=== PATIENT | female | born 1965 | race Caucasian/White ===

== ENCOUNTER 2018-12-13 04:35 | Observation (INO) ==
[2018-12-13] MEDS ORDERED: Ipratropium/Albuterol Neb 3 ML IH ONE (04:49)
[2018-12-13 05:13] LABS: ABG Base Excess 4 mEq/L (-2 to 3); ABG HCO3 31 mEq/L (21-27); ABG Oxygen Saturation 97 % (95-98); ABG PCO2 55 mmHg (35-45); ABG PH 7.36 pH Units (7.32-7.45); ABG PO2 93 mmHg (85-104); ABG TCO2 33 mEq/L (20-26)
--- NOTE | 2018-12-13 05:38 | Emergency Department Note ---
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 [Primary Care Provider] - Forms: ED Satisfaction Letter Time of Disposition: 06:45 SOB HPI - General Chief Complaint: ED Shortness of Breath/Dyspnea Stated Complaint: Wheezing, low SAO2, confusion Time Seen by Provider: 12/13/18 04:40 Source: patient, EMS Mode of arrival: EMS Limitations: no limitations Nursing Notes Reviewed: Yes Vital Signs Reviewed: Yes - History of Present Illness 53-year-old female who presents to the emergency room who had been reported as having an altered mental status at home who presents here to the emergency room having recently had a new change in medications but also was not wearing her BiPAP. She apparently was found with sats of 80% by EMS on the scene and she was confused and talking out of her head is its been reported. Upon arrival here the patient appears to be answering questions appropriately she knows person place date and time she denies though chest pain chest pressure palp itations she denies any cough hemoptysis or sputum production she denies any blurred vision double vision she admits that she did not have her BiPAP on she says to able to tell me that she just recently started new medication about a week ago. She denies any complaints she denies any fever chills cough congestion. Respiratory type symptoms she denies neck pain or neck stiffness but does admit to headache it is not the worst headache of her life it was not a sudden onset or thunderclap presentation from what obtained from the patient though at this time. 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 Denies: chest pain, pain with inspiration, fever, cough, sputum production, orthopnea, lower extremity pain, polyuria, polydipsia, parasthesias, palpitations, hemoptysis, diaphoresis, nausea/vomiting, syncope, abdominal pain, rash, sense of impending doom Treatment prior to arrival: oxygen Cough present: No Sputum production: No - Related Data Home Medications Medication Instructions Recorded Confirmed Aspirin Enteric Coated [Aspirin EC] 81 mg PO DAILY 09/01/16 04/15/18 Azelastine 0.1% Nasal [place] 1 spray NS BID 09/01/16 04/15/18 [Astelin] Cholecalciferol (Vitamin D3) 10,000 unit PO QWEEK 09/01/16 04/15/18 [Vitamin D3] Docusate [Colace] 100 mg PO DAILY PRN 09/01/16 04/15/18 Furosemide [Lasix] 20 mg PO DAILY 09/01/16 04/15/18 Melatonin 6 mg PO HS PRN 09/01/16 04/15/18 Metoprolol [Lopressor] 25 mg PO BID 09/01/16 04/15/18 Montelukast [Singulair] 10 mg PO QPM 09/01/16 04/15/18 Omeprazole [PriLOSEC] 40 mg PO DAILY 09/01/16 04/15/18 Tiotropium [Spiriva] 2 puff IH DAILY 09/01/16 04/15/18 BuPROPion XL (24 HR) [Wellbutrin 150 mg PO DAILY 06/29/17 04/15/18 Xl] Loratadine [Claritin] 10 mg PO DAILY 06/29/17 04/15/18 Dextran 70/Hypromellose 1 drop OP BID 01/20/18 04/15/18 [Artificial Tears] Famotidine [Pepcid] 40 mg PO DAILY 01/20/18 04/15/18 Fluticasone/Vilanterol [Breo 1 puff IH DAILY 01/20/18 04/15/18 Ellipta 100-25 Mcg INH] Guaifenesin [Mucinex] 600 mg PO Q12H PRN 01/20/18 04/15/18 Ibuprofen [Motrin] 600 mg PO TIDWM PRN 01/20/18 04/15/18 Ipratropium/Albuterol Neb [Duoneb] 3 ml IH Q6HR 01/20/18 04/15/18 Polyethylene Glycol 3350 [MiraLAX] 17 gm PO DAILY 01/20/18 04/15/18 Trazodone HCl 100 - 200 mg PO HS PRN 01/20/18 04/15/18 hydrOXYzine HCl [Hydroxyzine HCl] 25 mg PO TID PRN 01/20/18 04/15/18 lamoTRIgine [Lamictal] 100 mg PO DAILY 01/20/18 04/15/18 Acetaminophen [Non-Aspirin] 650 mg PO Q4H PRN 04/15/18 04/15/18 Albuterol Sulfate [Ventolin Hfa] 2 puff IN Q4H PRN 04/15/18 04/15/18 Amitriptyline [Elavil] 50 mg PO DAILY 04/15/18 04/15/18 Atorvastatin [Lipitor] 40 mg PO DAILY 04/15/18 04/15/18 Docosanol [Abreva] 1 appl TP BID 04/15/18 04/15/18 Lurasidone HCl [Latuda] 60 mg PO DAILY 04/15/18 04/15/18 Multivit with Calcium,Iron,Min 1 tab PO DAILY 04/15/18 04/15/18 [One Daily Women's] Nitroglycerin 0.4 mg PO AD 04/15/18 04/15/18 Previous Rx's Medication Instructions Recorded Ketoconazole 2% CRM [Nizoral Cream] 1 appl TP BID #1 tube 03/30/18 Promethazine [Phenergan] 12.5 mg PO Q8HR #15 tablet 03/30/18 PredniSONE [Deltasone] See Taper PO DAILY #20 tablet 04/20/18 Allergies Allergy/AdvReac Type Severity Reaction Status Date / Time oxytetracycline Allergy Swelling Verified 12/13/18 04:59 [From Terramycin] of Lip/Tongue/Throat All systems ED: reviewed and negative except as stated. Review of Systems: As Per HPI Constitutional: Denies: fever, chills, weakness Eyes: Denies: eye pain, eye discharge ENT ED: Denies: ear pain, throat pain Cardiovascular: Denies: chest pain, palpitations Respiratory: Denies: cough, dyspnea, wheezes Gastrointestinal: Denies: abdominal pain, nausea, vomiting Genitourinary: Denies: urgency, dysuria, frequency Musculoskeletal: Denies: back pain, neck pain Integumentary: Denies: rash, abrasion Neurological: Reports: headache, confusion. Denies: weakness Psychiatric: Denies: anxiety, depression Endocrine: Denies: fatigue Hematological/Lymphatic: Denies: easy bleeding Allergic/Immunologic: Denies: facial swelling Past Medical History - Past Medical History Attestation: Yes The following information was validated with the patient. 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 - Social History Smoking Status: Current every day smoker Smokeless Tobacco Status: No Alcohol use: Reports: none Drug use: Reports: none Physical Exam - General Limitations: no limitations General appearance: alert, in no apparent distress, obese - Head Head exam: atraumatic, normocephalic, normal inspection - Eye Eye exam: Present: normal appearance, PERRL, EOMI - ENT ENT exam: normal exam, normal oropharynx, mucous membranes moist, TM's normal bilaterally, normal external ear exam - Neck Neck exam: Present: normal inspection, full ROM, trachea midline - Chest Chest inspection: Present: normal inspection, symmetric chest wall rise - Respiratory Respiratory exam: Present: normal lung sounds bilaterally - Cardiovascular Cardiovascular exam: Present: regular rate, normal rhythm, normal heart sounds - Abdominal Exam Abdominal exam: Present: soft, Non-Tender, normal bowel sounds. Absent: mass, pulsatile mass - Expanded Upper Extremity Exam Shoulder exam: Present: normal inspection, full ROM Arm exam: Present: normal inspection, full ROM Elbow exam: Present: normal inspection, full ROM Forearm/Wrist exam: Present: normal inspection, full ROM Hand exam: Present: normal inspection, full ROM Vascular exam: Normal: capillary refill, radial pulse - Expanded Lower Extremity Exam Hip/Pelvis exam: Present: normal inspection, full ROM Upper leg exam: Present: normal inspection, full ROM Knee exam: Present: normal inspection, full ROM Lower leg exam: Present: normal inspection, full ROM Ankle exam: Present: normal inspection, full ROM Foot/toe exam: Present: normal inspection, full ROM Neurovascular/Tendon exam: Present: normal capillary refill, normal fine/light touch. Absent: motor deficit, sensory deficit, tendon deficit Gait: observed and normal - Back Exam Back exam: Present: normal inspection, full ROM. Absent: muscle spasm - Neurological Exam Neurological exam: Present: alert, oriented X3, CN II-XII intact, other (At times that appeared to be confused and was using a spoon and turning upside down trying to feed herself eyes and to could not comprehend what nursing staff was saying to) - Psychiatric Psychiatric exam: Present: agitated (As a result she appeared times to be agitated from the confusion) - Skin Skin exam: Present: warm, dry, intact, normal color Course Course Narrative: Patient seen and evaluated examinations performed laboratory chest x-ray ABG were obtained I reviewed the EKG does not show any evidence of an acute NC appears that this may be a combination of whether it is medication or its related to hypoxia results are pending at this time With the results have not been result of the chest x-ray showing no evidence of pneumonia or infiltrative processes appears to be an exacerbation of COPD which is causing the hypoxia and with her failure to where her BiPAP at night as result patient be admitted for observation spoke with Dr. Mtz Vital Signs Temperature 97.4 F L 12/13/18 04:38 Pulse Rate 83 12/13/18 04:38 Respiratory Rate 18 12/13/18 04:38 Blood Pressure 121/93 12/13/18 04:38 O2 Sat by Pulse Oximetry 99 12/13/18 04:38 Temperature 97.4 F L 12/13/18 04:38 Pulse Rate 72 12/13/18 05:45 Respiratory Rate 14 12/13/18 05:45 Blood Pressure 117/70 12/13/18 05:45 O2 Sat by Pulse Oximetry 94 12/13/18 05:45 Oxygen Delivery Oxygen Delivery Room Air Procedures - ABG Interpretation ABG Interpretation 1 Additional Comments: Patient appears to be compensating for CO2 slightly elevated that she is little bit hypoxic mixed respiratory compensated Shortness of Breath/Dyspnea - MDM Narrative Medical decision making narrative: CO2 retention causing a CO2 narcosis - Differential Diagnosis Likely: acute exacerbation of chronic obstructive airways disease - Medical Records Medical records reviewed: Yes I reviewed the patient's medical records. - Lab Data Lab results reviewed: Yes I reviewed the patient's lab results. Result diagrams: 12/13/18 05:38 12/13/18 05:38 Lab Results 12/13/18 12/13/18 12/13/18 Range/Units 05:11 05:30 05:30 WBC (4.3-11.1) K/mcL RBC (3.82-4.97) M/mcL Hgb (11.5-15.4) g/dL Hct (35.3-44.9) % MCV (83.0-100.0) fL MCH (28.0-33.3) pg MCHC (31.6-35.5) g/dL RDW (11.5-14.5) % Plt Count (140-400) K/mcL MPV (9.4-12.4) fL Immature Gran % (0-4) % Seg Neutrophils % % Lymphocytes % % Monocytes % % Eosinophils % % Basophils % % Neutrophils # (1.6-8.9) K/mcL Lymphocytes # (0.6-4.6) K/mcL Monocytes # (0.0-1.3) K/mcL Eosinophils # (0.0-0.6) K/mcL Basophils # (0.0-0.2) K/mcL PT (9.4-12.1) Seconds INR APTT (26.0-36.0) Seconds Sample Site R Radial ABG pH 7.36 (7.32-7.45) pH Units ABG pCO2 55 H (35-45) mmHg ABG pO2 93 (85-104) mmHg ABG HCO3 31 H (21-27) mEq/L ABG Total CO2 33 H (20-26) mEq/L ABG O2 Saturation 97 (95-98) % ABG Base Excess 4 H (-2 to 3) mEq/L Cong Test Positive O2 Delivery Device Cannula Inspired O2 2.0 (1-15=lpm [id number]=%) Sodium (136-145) mEq/L Potassium (3.5-5.1) mEq/L Chloride (98-107) mEq/L Carbon Dioxide (23-29) mEq/L BUN (6-20) mg/dL Creatinine (0.60-1.20) mg/dL Est GFR ( Amer) (> 60) Est GFR (Non-Af Amer) (> 60) BUN/Creatinine Ratio (6-26) Glucose (70-105) mg/dL Calculated Osmolality (280-300) Calcium (8.6-10.3) mg/dL Total Bilirubin (0.3-1.0) mg/dL AST (13-39) Units/L ALT (7-52) Units/L Alkaline Phosphatase (34-104) Units/L Troponin I (< 0.04) ng/mL Serum Total Protein (6.4-8.9) g/dL Albumin (3.5-5.7) g/dL Globulin (2.4-3.5) g/dL Albumin/Globulin Ratio (1.1-2.2) TSH (0.340-5.600) mcIU/mL Urine Color Yellow (Yellow) Urine Clarity Slightly Cloudy A (Clear) Urine pH 6.0 (5.0-8.0) pH Units Ur Specific [place] 1.015 (1.010-1.025) Urine Protein Negative (Neg-Trace) mg/dL Urine Glucose (UA) Normal (Normal) mg/dL Urine Ketones Negative (Negative) mg/dL Urine Blood Negative (Negative) Urine Nitrite Negative (Negative) Urine Bilirubin Negative (Negative) Urine Urobilinogen Normal (Normal) mg/dL Ur Leukocyte Esterase Negative (Negative) Urine Microscopic RBC 0-3 (0-3) per hpf Urine Microscopic WBC 0-3 (0-3) per hpf Ur Squamous Epith Cells Few (None-Few) per lpf Urine Bacteria Moderate H (None-Few) per hpf Hyaline Casts Few (None-Few) per lpf Urine Mucus Few (Few) Ur Culture Indicated? YES A (NO) Urine Opiates Screen Positive H (Sqczcu=593) ng/mL Ur Buprenorphine Scrn Negative (Cutoff=5) ng/mL Ur Oxycodone Screen Negative (Cutoff= 100) ng/mL Ur Barbiturates Screen Negative (Moeznc=549) ng/mL Ur Phencyclidine Scrn Negative (Cutoff=25) ng/mL Ur Amphetamines Screen Negative (Hjfhkn=9043) ng/mL U Benzodiazepines Scrn Negative (Ipmyqc=171) ng/mL Urine Cocaine Screen Negative (Cutoff= 300) ng/mL U Marijuana (THC) Screen Negative (Cutoff = 50) ng/mL Ur Drug Screen Interp See Below 12/13/18 12/13/18 12/13/18 Range/Units 05:38 05:38 05:38 WBC 7.9 (4.3-11.1) K/mcL RBC 4.44 (3.82-4.97) M/mcL Hgb 13.1 (11.5-15.4) g/dL Hct 39.8 (35.3-44.9) % MCV 89.6 (83.0-100.0) fL MCH 29.5 (28.0-33.3) pg MCHC 32.9 (31.6-35.5) g/dL RDW 13.9 (11.5-14.5) % Plt Count 324 (140-400) K/mcL MPV 9.7 (9.4-12.4) fL Immature Gran % 0.3 (0-4) % Seg Neutrophils % 59.2 % Lymphocytes % 27.8 % Monocytes % 11.0 % Eosinophils % 1.3 % Basophils % 0.4 % Neutrophils # 4.7 (1.6-8.9) K/mcL Lymphocytes # 2.2 (0.6-4.6) K/mcL Monocytes # 0.9 (0.0-1.3) K/mcL Eosinophils # 0.1 (0.0-0.6) K/mcL Basophils # 0.0 (0.0-0.2) K/mcL PT (9.4-12.1) Seconds INR APTT 44.7 H (26.0-36.0) Seconds Sample Site ABG pH (7.32-7.45) pH Units ABG pCO2 (35-45) mmHg ABG pO2 (85-104) mmHg ABG HCO3 (21-27) mEq/L ABG Total CO2 (20-26) mEq/L ABG O2 Saturation (95-98) % ABG Base Excess (-2 to 3) mEq/L Cong Test O2 Delivery Device Inspired O2 (1-15=lpm [id number]=%) Sodium 141 (136-145) mEq/L Potassium 3.3 L (3.5-5.1) mEq/L Chloride 100 (98-107) mEq/L Carbon Dioxide 34 H (23-29) mEq/L BUN 9 (6-20) mg/dL Creatinine 0.86 (0.60-1.20) mg/dL Est GFR ( Amer) > 60 (> 60) Est GFR (Non-Af Amer) > 60 (> 60) BUN/Creatinine Ratio 10 (6-26) Glucose 111 H (70-105) mg/dL Calculated Osmolality 291 (280-300) Calcium 9.0 (8.6-10.3) mg/dL Total Bilirubin 0.3 (0.3-1.0) mg/dL AST 14 (13-39) Units/L ALT 16 (7-52) Units/L Alkaline Phosphatase 123 H (34-104) Units/L Troponin I (< 0.04) ng/mL Serum Total Protein 6.4 (6.4-8.9) g/dL Albumin 3.9 (3.5-5.7) g/dL Globulin 2.5 (2.4-3.5) g/dL Albumin/Globulin Ratio 1.6 (1.1-2.2) TSH (0.340-5.600) mcIU/mL Urine Color (Yellow) Urine Clarity (Clear) Urine pH (5.0-8.0) pH Units Ur Specific [place] (1.010-1.025) Urine Protein (Neg-Trace) mg/dL Urine Glucose (UA) (Normal) mg/dL Urine Ketones (Negative) mg/dL Urine Blood (Negative) Urine Nitrite (Negative) Urine Bilirubin (Negative) Urine Urobilinogen (Normal) mg/dL Ur Leukocyte Esterase (Negative) Urine Microscopic RBC (0-3) per hpf Urine Microscopic WBC (0-3) per hpf Ur Squamous Epith Cells (None-Few) per lpf Urine Bacteria (None-Few) per hpf Hyaline Casts (None-Few) per lpf Urine Mucus (Few) Ur Culture Indicated? (NO) Urine Opiates Screen (Rryokt=569) ng/mL Ur Buprenorphine Scrn (Cutoff=5) ng/mL Ur Oxycodone Screen (Cutoff= 100) ng/mL Ur Barbiturates Screen (Bccrvj=878) ng/mL Ur Phencyclidine Scrn (Cutoff=25) ng/mL Ur Amphetamines Screen (Fiqhsd=9896) ng/mL U Benzodiazepines Scrn (Cskqaa=071) ng/mL Urine Cocaine Screen (Cutoff= 300) ng/mL U Marijuana (THC) Screen (Cutoff = 50) ng/mL Ur Drug Screen Interp 12/13/18 12/13/18 Range/Units 05:38 05:38 WBC (4.3-11.1) K/mcL RBC (3.82-4.97) M/mcL Hgb (11.5-15.4) g/dL Hct (35.3-44.9) % MCV (83.0-100.0) fL MCH (28.0-33.3) pg MCHC (31.6-35.5) g/dL RDW (11.5-14.5) % Plt Count (140-400) K/mcL MPV (9.4-12.4) fL Immature Gran % (0-4) % Seg Neutrophils % % Lymphocytes % % Monocytes % % Eosinophils % % Basophils % % Neutrophils # (1.6-8.9) K/mcL Lymphocytes # (0.6-4.6) K/mcL Monocytes # (0.0-1.3) K/mcL Eosinophils # (0.0-0.6) K/mcL Basophils # (0.0-0.2) K/mcL PT 11.6 (9.4-12.1) Seconds INR 1.0 APTT (26.0-36.0) Seconds Sample Site ABG pH (7.32-7.45) pH Units ABG pCO2 (35-45) mmHg ABG pO2 (85-104) mmHg ABG HCO3 (21-27) mEq/L ABG Total CO2 (20-26) mEq/L ABG O2 Saturation (95-98) % ABG Base Excess (-2 to 3) mEq/L Cong Test O2 Delivery Device Inspired O2 (1-15=lpm [id number]=%) Sodium (136-145) mEq/L Potassium (3.5-5.1) mEq/L Chloride (98-107) mEq/L Carbon Dioxide (23-29) mEq/L BUN (6-20) mg/dL Creatinine (0.60-1.20) mg/dL Est GFR ( Amer) (> 60) Est GFR (Non-Af Amer) (> 60) BUN/Creatinine Ratio (6-26) Glucose (70-105) mg/dL Calculated Osmolality (280-300) Calcium (8.6-10.3) mg/dL Total Bilirubin (0.3-1.0) mg/dL AST (13-39) Units/L ALT (7-52) Units/L Alkaline Phosphatase (34-104) Units/L Troponin I < 0.03 (< 0.04) ng/mL Serum Total Protein (6.4-8.9) g/dL Albumin (3.5-5.7) g/dL Globulin (2.4-3.5) g/dL Albumin/Globulin Ratio (1.1-2.2) TSH 2.855 (0.340-5.600) mcIU/mL Urine Color (Yellow) Urine Clarity (Clear) Urine pH (5.0-8.0) pH Units Ur Specific [place] (1.010-1.025) Urine Protein (Neg-Trace) mg/dL Urine Glucose (UA) (Normal) mg/dL Urine Ketones (Negative) mg/dL Urine Blood (Negative) Urine Nitrite (Negative) Urine Bilirubin (Negative) Urine Urobilinogen (Normal) mg/dL Ur Leukocyte Esterase (Negative) Urine Microscopic RBC (0-3) per hpf Urine Microscopic WBC (0-3) per hpf Ur Squamous Epith Cells (None-Few) per lpf Urine Bacteria (None-Few) per hpf Hyaline Casts (None-Few) per lpf Urine Mucus (Few) Ur Culture Indicated? (NO) Urine Opiates Screen (Rcrqdr=833) ng/mL Ur Buprenorphine Scrn (Cutoff=5) ng/mL Ur Oxycodone Screen (Cutoff= 100) ng/mL Ur Barbiturates Screen (Sdrdpk=112) ng/mL Ur Phencyclidine Scrn (Cutoff=25) ng/mL Ur Amphetamines Screen (Fumgmi=0165) ng/mL U Benzodiazepines Scrn (Kgknsg=828) ng/mL Urine Cocaine Screen (Cutoff= 300) ng/mL U Marijuana (THC) Screen (Cutoff = 50) ng/mL Ur Drug Screen Interp - Radiology Data Radiology results reviewed: Yes I reviewed the patient's radiology results. ITS Impressions Chest X-Ray 12/13/18 04:48 IMPRESSION: Negative chest. D/ / Sangeeta Rg MD / Sangeeta Rg MD Interpreting Provider: Sangeeta Rg MD Head CT 12/13/18 04:50 IMPRESSION: No acute intracranial abnormality. Left maxillary likely chronic sinusitis as described. D/ / Sangeeta Rg MD / Sangeeta Rg MD Interpreting Provider: Sangeeta Rg MD - EKG Data EKG attestation: Yes I reviewed and interpreted this EKG. EKG results narrative: EKG shows sinus rhythm rate of 80 AR 206 QRS 103 QT 421 axis LX Critical Care Time Critical Care Time: Yes Total Critical Care Time: 15 Attestation: High probability of clinically significant life-threatening deterioration patient condition excluding separately reportable procedures as result for determining etiology for causing altered mental status discussion with hospitalist for admission
[2018-12-13 06:13] LABS: Basophils % 0.4 %; Eosinophils # 0.1 K/mcL (0.0-0.6); Eosinophils % 1.3 %; Hematocrit 39.8 % (35.3-44.9); Hemoglobin 13.1 g/dL (11.5-15.4); Immature Granulocytes % 0.3 % (0-4); Lymphocytes # 2.2 K/mcL (0.6-4.6); Lymphocytes % 27.8 %; Mean Corpuscular HGB Conc 32.9 g/dL (31.6-35.5); Mean Corpuscular Hemoglobin 29.5 pg (28.0-33.3); Mean Corpuscular Volume 89.6 fL (83.0-100.0); Mean Platelet Volume 9.7 fL (9.4-12.4); Monocytes # 0.9 K/mcL (0.0-1.3); Neutrophils # 4.7 K/mcL (1.6-8.9); Platelet Count 324 K/mcL (140-400); Red Blood Count 4.44 M/mcL (3.82-4.97); Red Cell Distribution Width 13.9 % (11.5-14.5); Segmented Neutrophils % 59.2 %; White Blood Count 7.9 K/mcL (4.3-11.1)
[2018-12-13 06:18] LABS: Prothrombin Time 11.6 Seconds (9.4-12.1)
[2018-12-13 06:23] LABS: Bilirubin,Urine Negative (Negative); Blood,Urine Negative (Negative); Clarity,Urine Slightly Cloudy (Clear); Color,Urine Yellow (Yellow); Glucose,Urine (UA) Normal (Normal); Ketones,Urine Negative (Negative); Leukocyte Esterase,Urine Negative (Negative); Nitrite,Urine Negative (Negative); Protein,Urine Negative (Neg-Trace); Specific Gravity,Urine 1.015 (1.010-1.025); Urobilinogen,Urine Normal (Normal)
[2018-12-13 06:29] LABS: Troponin I < 0.03 ng/mL (< 0.04)
[2018-12-13 06:29] LABS: Bacteria,Urine Moderate per hpf (None-Few); Hyaline Casts,Urine Few per lpf (None-Few); RBC,Urine 0-3 per hpf (0-3); Squamous Epithelial Cell,Urine Few per lpf (None-Few); WBC,Urine 0-3 per hpf (0-3)
[2018-12-13 06:30] LABS: Alanine Aminotransferase 16 Units/L (7-52); Albumin 3.9 g/dL (3.5-5.7); Albumin/Globulin Ratio 1.6 (1.1-2.2); Alkaline Phosphatase 123 Units/L (34-104); Aspartate Amino Transferase 14 Units/L (13-39); BUN/Creatinine Ratio 10 (6-26); Bilirubin,Total 0.3 mg/dL (0.3-1.0); Blood Urea Nitrogen 9 mg/dL (6-20); Carbon Dioxide 34 mEq/L (23-29); Chloride 100 mEq/L (98-107); Globulin 2.5 g/dL (2.4-3.5); Glucose 111 mg/dL (70-105); Osmolality,Calculated 291 (280-300); Potassium 3.3 mEq/L (3.5-5.1); Sodium 141 mEq/L (136-145); Total Protein 6.4 g/dL (6.4-8.9); eGFR For African Americans > 60 (> 60); eGFR For Non-African Americans > 60 (> 60)
[2018-12-13 06:31] LABS: Mucus,Urine Few (Few)
[2018-12-13 06:34] LABS: Amphetamine Screen,Urine Negative ng/mL (Cutoff=1000); Barbiturate Screen,Urine Negative ng/mL (Cutoff=200); Benzodiazepines Screen,Urine Negative ng/mL (Cutoff=200); Cannabinoid Screen,Urine Negative ng/mL (Cutoff = 50); Cocaine Screen,Urine Negative ng/mL (Cutoff= 300); Opiate Screen,Urine Positive ng/mL (Cutoff=300); Phencyclidine Screen,Urine Negative ng/mL (Cutoff=25)
[2018-12-13 06:43] LABS: Thyroid Stimulating Hormone 2.855 mcIU/mL (0.340-5.600)
[2018-12-13] MEDS ORDERED: levoFLOXacin 500 MG/100 ML 500 MG/100 ML BAG IVPB ONE (06:46)
[2018-12-13] MEDS ORDERED: methylPREDNISolone 125 MG/2 ML VIAL IVP ONE (06:46)
[2018-12-13] MEDS ORDERED: Acetaminophen 325 MG TABLET PO PRN (07:42)
[2018-12-13] MEDS ORDERED: Naloxone 0.4 MG/ML INJ IVP PRN (07:42)
[2018-12-13] MEDS ORDERED: Ibuprofen 600 MG TABLET PO PRN (07:42)
[2018-12-13] MEDS ORDERED: Melatonin 3 MG TABLET PO PRN (07:42)
[2018-12-13] MEDS ORDERED: Ipratropium/Albuterol Neb 3 ML IH SCH (11:00)
[2018-12-13] MEDS ORDERED: MethylPREDNISolone 40 MG/ML VIAL IVP SCH (12:00)
[2018-12-13] MEDS ORDERED: Albuterol 2.5 MG/3 ML NEBULIZER IH PRN (14:56)
--- NOTE | 2018-12-13 15:08 | Internal Med History&Physical ---
Date of Encounter: 12/13/18 Time of Encounter: 14:35 Assessment and Plan (1) Confusion Current visit: Yes Status: Acute Now resolved. Possibly etiologies include hypoxemia, hypercapnia, medication side effect, or other etiology. (2) Weight loss Current visit: Yes Status: Acute TSH was normal at 2.855 on ER labs. Abdominal/pelvis CT 12/16/2016 in chest CTA 04/07/2018 showed no worrisome pathology. (3) Bipolar disorder Current visit: Yes Status: Chronic Continue Lamictal, Latuda and Wellbutrin XL Qualifiers: Active/Remission status: remission status unspecified Qualified Code(s): F31.9 - Bipolar disorder, unspecified (4) HTN (hypertension) Current visit: No Status: Chronic Continue Lasix and Lopressor. Qualifiers: Hypertension type: essential hypertension Qualified Code(s): I10 - Essential (primary) hypertension (5) Hypokalemia Current visit: Yes Status: Acute Potassium level was 3.3 in emergency room. Supplemental potassium has been ordered. Internal Medicine - H&P: HPI Chief complaint: Confusion, hypoxia, hallucinations Admitted From: Emergency Dept Plans for Post Hospital Care: Home History of present illness: Ms. Card is a 53 year old female who was brought to emergency room after she was noted to have been hallucinating at home thinking people were in her home who really were not there. EMS was called and found oxygen level saturation in the 80s percent per ER note. She was brought to emergency room and evaluated and was felt to have exacerbation of COPD. She was admitted to [facility] floor for ongoing care needs. She states she feels improved at the present time. She reports a previous hallucination approximately 2 months ago. She follows at mental health clinic for diagnoses of anxiety, bipolar, PTSD, and insomnia. She denies missing any of her medications. She states Abilify was added to her regimen approximately 4 weeks ago. Respiratory history is significant for having smoked since age 18 up to one pack per day. PFTs 05/13/2017 showed FVC 51% predicted, FEV1 55% predicted, FEV1/FVC 84%, MVV 51% predicted, RV 72% predicted, and DLCO (uncorrected) 41%. There was insignificant improvement in FEV1 and FVC postbronchodilator. She was diagnosed with restrictive lung disease. She reports she wears supplemental oxygen at home. She has been diagnosed with MITCH and wears BiPAP at bedtime. Past Med Surg Social Fam HX - Past Medical History Medical history: CHF, COPD, fibromyalgia, GERD, hyperlipidemia, hypertension, migraine, peripheral artery disease, RA Psychiatric history: anxiety, depression, PTSD - Past Surgical History Surgical History: , hysterectomy Additional surgical history: Heart cath - Social History Smoking Status: Current every day smoker Smokeless Tobacco Status: No Alcohol use: none Drug use: none - Family History Mother Living Status: Hx Family Cardiac Disorders: No Hx Family Respiratory Disorders: Yes Hx Family Cancer: Yes (LUNG) Father Living Status: Hx Family Cardiac Disorders: Yes Internal Medicine - H&P: Meds Aspirin Enteric Coated [Aspirin EC] 81 mg PO DAILY 09/01/16 [History] Azelastine 0.1% Nasal [place] [Astelin] 1 spray NS BID 09/01/16 [History] Cholecalciferol (Vitamin D3) [Vitamin D3] 10,000 unit PO QWEEK 09/01/16 [History] Docusate [Colace] 100 mg PO DAILY PRN 09/01/16 [History] Furosemide [Lasix] 20 mg PO DAILY 09/01/16 [History] Melatonin 6 mg PO HS PRN 09/01/16 [History] Metoprolol [Lopressor] 25 mg PO BID 09/01/16 [History] Montelukast [Singulair] 10 mg PO QPM 09/01/16 [History] Omeprazole [PriLOSEC] 40 mg PO DAILY 09/01/16 [History] Tiotropium [Spiriva] 2 puff IH DAILY 09/01/16 [History] BuPROPion XL (24 HR) [Wellbutrin Xl] 150 mg PO DAILY 06/29/17 [History] Loratadine [Claritin] 10 mg PO DAILY 06/29/17 [History] Dextran 70/Hypromellose [Artificial Tears] 1 drop OP BID 01/20/18 [History] Famotidine [Pepcid] 40 mg PO DAILY 01/20/18 [History] Fluticasone/Vilanterol [Breo Ellipta 100-25 Mcg INH] 1 puff IH DAILY 01/20/18 [History] Guaifenesin [Mucinex] 600 mg PO Q12H PRN 01/20/18 [History] Ibuprofen [Motrin] 600 mg PO TIDWM PRN 01/20/18 [History] Ipratropium/Albuterol Neb [Duoneb] 3 ml IH Q6HR 01/20/18 [History] Polyethylene Glycol 3350 [MiraLAX] 17 gm PO DAILY 01/20/18 [History] Trazodone HCl 100 - 200 mg PO HS PRN 01/20/18 [History] hydrOXYzine HCl [Hydroxyzine HCl] 25 mg PO TID PRN 01/20/18 [History] lamoTRIgine [Lamictal] 100 mg PO DAILY 01/20/18 [History] Ketoconazole 2% CRM [Nizoral Cream] 1 appl TP BID #1 tube 03/30/18 [Rx] Promethazine [Phenergan] 12.5 mg PO Q8HR #15 tablet 03/30/18 [Rx] Acetaminophen [Non-Aspirin] 650 mg PO Q4H PRN 04/15/18 [History] Albuterol Sulfate [Ventolin Hfa] 2 puff IN Q4H PRN 04/15/18 [History] Amitriptyline [Elavil] 50 mg PO DAILY 04/15/18 [History] Atorvastatin [Lipitor] 40 mg PO DAILY 04/15/18 [History] Docosanol [Abreva] 1 appl TP BID 04/15/18 [History] Lurasidone HCl [Latuda] 60 mg PO DAILY 04/15/18 [History] Multivit with Calcium,Iron,Min [One Daily Women's] 1 tab PO DAILY 04/15/18 [History] Nitroglycerin 0.4 mg PO AD 04/15/18 [History] PredniSONE [Deltasone] See Taper PO DAILY #20 tablet 04/20/18 [Rx] Allergy/AdvReac Type Severity Reaction Status Date / Time oxytetracycline Allergy Swelling Verified 12/13/18 04:59 [From Terramycin] of Lip/Tongue/Throat All Systems PM: A 10-system review of systems was performed and is negative for pertinent findings except as documented above in the HPI. Review of systems: Gen.: Her weight has decreased from 118.4 kg in 04/23/2018 to present weight of 110.024 kilograms. She attributes the weight loss to change in her diet Cardiovascular: She has history of hypertension. Regadenoson EST 09/30/2016 showed LVEF of > 70% with EKG and perfusion imaging negative for ischemia or infarct. Echocardiogram 04/16/2018 showed LVEF 70%. No significant valvular abnormality was seen. The interventricular septum and posterior wall thickness measurements were 1.00 and 1.01 cm respectively. E/A ratio was 0.9. She denies DVT or pulmonary embolus. Respiratory: As per history of present illness GI: She has GERD. She has had vomiting and diarrhea intermittently over the past 2 months with increase in the past few weeks. She denies disorders of her liver gallbladder or exocrine pancreas : She denies hematuria dysuria or kidney stones Neurologic: She denies large distribution strokes or seizures. Endocrine: She has hyperlipidemia. She denies diabetes or thyroid disease Hematology/oncology: She had cervical cancer with cryotherapy approximately age 23. This is also reveals later by hysterectomy. She has had no further malignancies. She denies blood disorders or anemia. Psychiatric: As per history of present illness [place] skeletal: She reports chronic low back pain. She reports SI injections have been done. She states she has rheumatoid arthritis. She denies gout. - Constitutional Vitals: Temp Pulse Resp BP Pulse Ox 96.8 F L 71 20 117/76 90 12/13/18 10:23 12/13/18 10:23 12/13/18 10:23 12/13/18 10:23 12/13/18 10:23 Exam: Gen.: She is a well-developed overweight female lying in bed who appears in no severe distress at present time HEENT: Head is atraumatic and normocephalic. Eyes: EOMI. There is no scleral icterus. Mouth: Mucosa is moist. Neck: Supple and nontender. There is no thyromegaly or adenopathy noted. Heart: Regular without murmurs gallops or ectopics Lungs: No wheezes or crackles are heard. Abdomen: Soft and nontender. No masses or guarding are noted. Extremities: There is no cyanosis edema or clubbing noted. Dorsalis pedis and posterior tibial pulses are trace to 1+ palpable bilaterally. Neurologic: Mental status: She is talkative and a good historian. Cranial nerves: Smile is symmetric. Forehead wrinkles bilaterally. Tongue protrudes midline. EOMI. Motor: There is no pronator drift. Cerebellar: Finger to nose is intact bilaterally. Skin: Warm and dry Internal Med - H&P Results - Labs CBC & Chem 7: 12/13/18 05:38 12/13/18 05:38 Labs: Short CBC 12/13/18 Range/Units 05:38 WBC 7.9 (4.3-11.1) K/mcL Hgb 13.1 (11.5-15.4) g/dL Hct 39.8 (35.3-44.9) % Plt Count 324 (140-400) K/mcL Neutrophils # 4.7 (1.6-8.9) K/mcL BMP 12/13/18 05:38 Sodium 141 Potassium 3.3 L Chloride 100 Carbon Dioxide 34 H BUN 9 Creatinine 0.86 Glucose 111 H Calcium 9.0 Cardiac Enzymes 12/13/18 Range/Units 05:38 Troponin I < 0.03 (< 0.04) ng/mL Liver Function 12/13/18 Range/Units 05:38 Total Bilirubin 0.3 (0.3-1.0) mg/dL AST 14 (13-39) Units/L ALT 16 (7-52) Units/L Alkaline Phosphatase 123 H (34-104) Units/L Albumin 3.9 (3.5-5.7) g/dL Urine 12/13/18 Range/Units 05:30 Urine Color Yellow (Yellow) Urine Clarity Slightly Cloudy A (Clear) Urine pH 6.0 (5.0-8.0) pH Units Ur Specific [place] 1.015 (1.010-1.025) Urine Protein Negative (Neg-Trace) mg/dL Urine Glucose (UA) Normal (Normal) mg/dL - ABG Interpretation ABG results: 12/13/18 05:11 ABG pH 7.36 ABG pCO2 55 H ABG pO2 93 ABG HCO3 31 H ABG Total CO2 33 H ABG O2 Saturation 97 ABG Base Excess 4 H - Impressions ITS Impressions Chest X-Ray 12/13/18 04:48 IMPRESSION: Negative chest. D/ / Sangeeta Rg MD / Sangeeta Rg MD Interpreting Provider: Sangeeta Rg MD Head CT 12/13/18 04:50 IMPRESSION: No acute intracranial abnormality. Left maxillary likely chronic sinusitis as described. D/ / Sangeeta Rg MD / Sangeeta Rg MD Interpreting Provider: Sangeeta Rg MD
[2018-12-13] MEDS: Furosemide 20 MG TABLET PO SCH (15:20)
[2018-12-13] MEDS: Aspirin Enteric Coated 81 MG Tablet PO SCH (15:20)
[2018-12-13] MEDS: BuPROPion XL (24 HR) 150 MG TABLET PO SCH (15:21)
[2018-12-13] MEDS: Tiotropium 18 MCG inhalation IH SCH (15:21)
[2018-12-13] MEDS: lamoTRIgine 100 MG TABLET PO SCH (15:21)
[2018-12-13] MEDS: Famotidine 20 MG TABLET PO SCH (15:22)
[2018-12-13] MEDS: Ketoconazole 2% CRM 15 GM TUBE TP SCH ×2 (15:50→22:10)
[2018-12-13] MEDS: *HR* HYDROcodone/Acet 5/325 mg TABLET PO PRN ×2 (15:52→23:43)
--- NOTE | 2018-12-13 16:15 | Electrocardiograph Report ---
[address] [address] Test Date: 2018-12-13 Pat Name: Marli Card Department: EDP-[id number] Room: [facility] Gender: F Frog Shaker: : 1965 Requested By: Marla Fernández Order Number: [id number] Reading MD: Fan Ness Measurements Intervals [place] Rate: 80 P: 89 DE: 206 QRS: 65 QRSD: 103 T: QT: 421 QTc: 486 Interpretive Statements Sinus rhythm Baseline artifact Electronically Signed On 12-13-2018 16:13:37 EDT by Fan Ness
[2018-12-13] MEDS ORDERED: traZODone 50 MG TABLET PO SCH (21:00)
[2018-12-14 06:37] LABS: Basophils % 0.1 %; Hematocrit 36.5 % (35.3-44.9); Hemoglobin 11.9 g/dL (11.5-15.4); Immature Granulocytes % 0.3 % (0-4); Lymphocytes # 1.4 K/mcL (0.6-4.6); Lymphocytes % 11.3 %; Mean Corpuscular HGB Conc 32.6 g/dL (31.6-35.5); Mean Corpuscular Hemoglobin 29.3 pg (28.0-33.3); Mean Corpuscular Volume 89.9 fL (83.0-100.0); Mean Platelet Volume 9.3 fL (9.4-12.4); Monocytes # 0.9 K/mcL (0.0-1.3); Monocytes % 7.2 %; Platelet Count 287 K/mcL (140-400); Red Blood Count 4.06 M/mcL (3.82-4.97); Red Cell Distribution Width 13.9 % (11.5-14.5); Segmented Neutrophils % 81.1 %; White Blood Count 12.5 K/mcL (4.3-11.1)
[2018-12-14 06:47] LABS: Neutrophils # 10.1 K/mcL (1.6-8.9)
[2018-12-14 07:08] LABS: BUN/Creatinine Ratio 12 (6-26); Blood Urea Nitrogen 10 mg/dL (6-20); Carbon Dioxide 32 mEq/L (23-29); Chloride 105 mEq/L (98-107); Glucose 126 mg/dL (70-105); Magnesium 1.9 mg/dL (1.6-2.6); Osmolality,Calculated 293 (280-300); Phosphorous 3.5 mg/dL (2.7-4.5); Potassium 4.3 mEq/L (3.5-5.1); Sodium 141 mEq/L (136-145); eGFR For African Americans > 60 (> 60); eGFR For Non-African Americans > 60 (> 60)
[2018-12-14] MEDS: Famotidine 20 MG TABLET PO SCH (07:54)
[2018-12-14] MEDS: BuPROPion XL (24 HR) 150 MG TABLET PO SCH (07:56)
[2018-12-14] MEDS: Ketoconazole 2% CRM 15 GM TUBE TP SCH (07:56)
[2018-12-14] MEDS: Aspirin Enteric Coated 81 MG Tablet PO SCH (07:56)
[2018-12-14] MEDS: lamoTRIgine 100 MG TABLET PO SCH (07:56)
[2018-12-14] MEDS ORDERED: levoFLOXacin 500 MG/100 ML 500 MG/100 ML BAG IVPB SCH (09:00)
[2018-12-14] MEDS ORDERED: Lurasidone 20 MG TABLET PO SCH (09:00)
[2018-12-14] MEDS: Tiotropium 18 MCG inhalation IH SCH (09:36)
[2018-12-14] MEDS: Furosemide 20 MG TABLET PO SCH (10:23)
[2018-12-14 10:29] VITALS: BP 107/71
[2018-12-14] MEDS ORDERED: Cyanocobalamin (B-12) 1,000 MCG/ML VIAL IM ONE (11:07)
--- NOTE | 2018-12-14 11:09 | Discharge Summary ---
Date of Encounter: 12/14/18 Time of Encounter: 10:57 - Discharge Diagnosis (1) Confusion Priority: Primary Status: Acute (2) Weight loss Priority: Secondary Status: Acute (3) Bipolar disorder Priority: Secondary Status: Chronic Qualifiers: Active/Remission status: remission status unspecified Qualified Code(s): F31.9 - Bipolar disorder, unspecified (4) HTN (hypertension) Priority: Secondary Status: Chronic Qualifiers: Hypertension type: essential hypertension Qualified Code(s): I10 - Essential (primary) hypertension (5) Hypokalemia Priority: Secondary Status: Acute Hospital course: Ms. Card is a 53 year old female who was brought to emergency room after she was noted to have been hallucinating at home thinking people were in her home who really were not there. EMS was called and found oxygen level saturation in the 80s percent per ER note. She was brought to emergency room and evaluated and was felt to have exacerbation of COPD. She was admitted to [facility] floor for ongoing care needs. Initial orders were written by the emergency room physician. I saw her on December 13 and performed a history and physical. By the time I saw her the confusion was resolved. Additional workup showed B12 level low at 200. TSH was normal in the ER 2.855. She was given a B12 injection prior to discharge and will start oral B12 supplement. WAC had risen slightly to 12.5 on day of discharge with 81.1% segs. She remained afebrile and no antibodies will be given at this time. Supplement potassium was given and her potassium normalized to 4.3 by day of discharge. She will continue supplemental potassium at home. Urine culture showed no growth. On December 14 she felt improved and stable for discharge home. She will follow with her PCP Nelly Avilez CNP within 1 week. She will continue home oxygen as prescribed. She will follow with mental health clinic as directed. - Time Spent with Patient Total time spent providing and/or coordinating discharge services: - Discharge Medications Prescriptions: New Potassium Chloride 20 meq PO DAILY #30 tab.er.prt Cyanocobalamin (B-12) [Vitamin B12] 1,000 mcg PO DAILY #30 tablet Continued Tiotropium [Spiriva] 2 puff IH DAILY Metoprolol [Lopressor] 25 mg PO BID Montelukast [Singulair] 10 mg PO QPM Aspirin Enteric Coated [Aspirin EC] 81 mg PO DAILY Omeprazole [PriLOSEC] 40 mg PO DAILY Furosemide [Lasix] 20 mg PO DAILY Melatonin 6 mg PO HS PRN PRN Reason: Sleep Docusate [Colace] 100 mg PO DAILY PRN PRN Reason: Constipation Cholecalciferol (Vitamin D3) [Vitamin D3] 10,000 unit PO QWEEK Azelastine 0.1% Nasal [place] [Astelin] 1 spray NS BID BuPROPion XL (24 HR) [Wellbutrin Xl] 150 mg PO DAILY Loratadine [Claritin] 10 mg PO DAILY Dextran 70/Hypromellose [Artificial Tears] 1 drop OP BID Famotidine [Pepcid] 40 mg PO DAILY Fluticasone/Vilanterol [Breo Ellipta 100-25 Mcg INH] 1 puff IH DAILY Guaifenesin [Mucinex] 600 mg PO Q12H PRN PRN Reason: Congestion hydrOXYzine HCl [Hydroxyzine HCl] 25 mg PO TID PRN PRN Reason: Anxiety Ibuprofen [Motrin] 600 mg PO TIDWM PRN PRN Reason: Pain Ipratropium/Albuterol Neb [Duoneb] 3 ml IH Q6HR lamoTRIgine [Lamictal] 100 mg PO DAILY Polyethylene Glycol 3350 [MiraLAX] 17 gm PO DAILY Trazodone HCl 100 - 200 mg PO HS PRN PRN Reason: Sleep Promethazine [Phenergan] 12.5 mg PO Q8HR #15 tablet Ketoconazole 2% CRM [Nizoral Cream] 1 appl TP BID #1 tube Acetaminophen [Non-Aspirin] 650 mg PO Q4H PRN PRN Reason: Pain Albuterol Sulfate [Ventolin Hfa] 2 puff IN Q4H PRN PRN Reason: Shortness Of Breath Amitriptyline [Elavil] 50 mg PO DAILY Docosanol [Abreva] 1 appl TP BID Lurasidone HCl [Latuda] 60 mg PO DAILY Multivit with Calcium,Iron,Min [One Daily Women's] 1 tab PO DAILY Nitroglycerin 0.4 mg PO AD Atorvastatin [Lipitor] 40 mg PO DAILY PredniSONE [Deltasone] See Taper PO DAILY #20 tablet Home Medications: Aspirin Enteric Coated [Aspirin EC] 81 mg PO DAILY 09/01/16 [History] Azelastine 0.1% Nasal [place] [Astelin] 1 spray NS BID 09/01/16 [History] Cholecalciferol (Vitamin D3) [Vitamin D3] 10,000 unit PO QWEEK 09/01/16 [History] Docusate [Colace] 100 mg PO DAILY PRN 09/01/16 [History] Furosemide [Lasix] 20 mg PO DAILY 09/01/16 [History] Melatonin 6 mg PO HS PRN 09/01/16 [History] Metoprolol [Lopressor] 25 mg PO BID 09/01/16 [History] Montelukast [Singulair] 10 mg PO QPM 09/01/16 [History] Omeprazole [PriLOSEC] 40 mg PO DAILY 09/01/16 [History] Tiotropium [Spiriva] 2 puff IH DAILY 09/01/16 [History] BuPROPion XL (24 HR) [Wellbutrin Xl] 150 mg PO DAILY 06/29/17 [History] Loratadine [Claritin] 10 mg PO DAILY 06/29/17 [History] Dextran 70/Hypromellose [Artificial Tears] 1 drop OP BID 01/20/18 [History] Famotidine [Pepcid] 40 mg PO DAILY 01/20/18 [History] Fluticasone/Vilanterol [Breo Ellipta 100-25 Mcg INH] 1 puff IH DAILY 01/20/18 [History] Guaifenesin [Mucinex] 600 mg PO Q12H PRN 01/20/18 [History] Ibuprofen [Motrin] 600 mg PO TIDWM PRN 01/20/18 [History] Ipratropium/Albuterol Neb [Duoneb] 3 ml IH Q6HR 01/20/18 [History] Polyethylene Glycol 3350 [MiraLAX] 17 gm PO DAILY 01/20/18 [History] Trazodone HCl 100 - 200 mg PO HS PRN 01/20/18 [History] hydrOXYzine HCl [Hydroxyzine HCl] 25 mg PO TID PRN 01/20/18 [History] lamoTRIgine [Lamictal] 100 mg PO DAILY 01/20/18 [History] Ketoconazole 2% CRM [Nizoral Cream] 1 appl TP BID #1 tube 03/30/18 [Rx] Promethazine [Phenergan] 12.5 mg PO Q8HR #15 tablet 03/30/18 [Rx] Acetaminophen [Non-Aspirin] 650 mg PO Q4H PRN 04/15/18 [History] Albuterol Sulfate [Ventolin Hfa] 2 puff IN Q4H PRN 04/15/18 [History] Amitriptyline [Elavil] 50 mg PO DAILY 04/15/18 [History] Atorvastatin [Lipitor] 40 mg PO DAILY 04/15/18 [History] Docosanol [Abreva] 1 appl TP BID 04/15/18 [History] Lurasidone HCl [Latuda] 60 mg PO DAILY 04/15/18 [History] Multivit with Calcium,Iron,Min [One Daily Women's] 1 tab PO DAILY 04/15/18 [History] Nitroglycerin 0.4 mg PO AD 04/15/18 [History] PredniSONE [Deltasone] See Taper PO DAILY #20 tablet 04/20/18 [Rx] Cyanocobalamin (B-12) [Vitamin B12] 1,000 mcg PO DAILY #30 tablet 12/14/18 [Rx] Potassium Chloride 20 meq PO DAILY #30 tab.er.prt 12/14/18 [Rx] Allergies/Adverse Reactions: Allergy/AdvReac Type Severity Reaction Status Date / Time oxytetracycline Allergy Swelling Verified 12/13/18 04:59 [From Terramycin] of Lip/Tongue/Throat Date of admission: 12/13/18 07:04 Primary care physician: Nelly Avilez CNP Consults: 12/13/18 07:42 Consult to Nurse Navigator [CONS] Routine Comment: 12/13/18 15:45 Consult to Nutrition [CONS] Routine Comment: Consulting Provider: NUTRITION Reason for Dietary Consult: MST Score - Constitutional Vitals: Temp Pulse Resp BP Pulse Ox 98.6 F 89 20 107/71 99 12/14/18 10:28 12/14/18 10:28 12/14/18 10:28 12/14/18 10:28 12/14/18 10:28 - Patient Status Disposition: Home, Self-Care Condition: Fair - Discharge Instructions Follow Up With: Nelly Avilez CNP [Primary Care Provider] - 1 week - Diet and Activity Activity: resume usual activities as tolerated, wear oxygen at all times Diet: advance to your usual diet
[2018-12-14] MEDS: *HR* HYDROcodone/Acet 5/325 mg TABLET PO PRN (12:15)
== END 2018-12-14 14:00 | disposition home or self-care (01) ==
LOC: INPPIK 04:35 → EMEROOPIK 04:35 → INPPIK 07:58
PROVIDERS: ADMIT Internal Medicine; ATTEND Internal Medicine